=== PATIENT | female | born 1950 | race Caucasian/White ===

== ENCOUNTER 2017-10-13 11:22 | Day surgery (SDC) | payer BC, OTHER ==
[2017-09-21 09:45] VITALS: Ht 160 cm; Wt 110.0 kg
--- NOTE | 2017-09-21 10:13 | PAT Medication Instructions ---
Service Date Sep 21, 2017. Current Home Medication List Aspirin (Aspirin Ec), 81 MG PO QAM Atorvastatin (Lipitor), 20 MG PO HS Cholecalciferol (Vitamin D3), 1 TAB PO QAM Diclofenac (Voltaren), 75 MG PO BID Fish Oil ([place]-3), 1 CAP PO BID Folic Acid (Folvite), 5 MG PO QAM Hydrochlorothiazide (Hctz), 25 MG PO QAM Hydroxychloroquine Sulfate (Plaquenil), 200 MG PO BID Irbesartan-Hydrochlorothiazide (Avalide), 1 TAB PO QAM Labetalol Hcl (Normodyne), 400 MG PO BID Levothyroxine Sodium (Synthroid), 175 MCG PO QAM Methotrexate (Methotrexate), 6 TAB PO MONDAY Montelukast Sodium (Montelukast Sodium), 1 TAB PO HS Multivitamin (Multivitamin), 1 TAB PO QAM Medication Instructions For Your Scheduled Surgery -Contact your surgeon for instructions for: Aspirin (Aspirin Ec), 81 MG PO QAM Diclofenac (Voltaren), 75 MG PO BID -Contact your prescriber for instructions for: Methotrexate (Methotrexate), 6 TAB PO MONDAY - Hold the following medications 2 weeks prior to surgery: Fish Oil ([place]-3), 1 CAP PO BID - Hold the following medications the morning of surgery: Multivitamin (Multivitamin), 1 TAB PO QAM Cholecalciferol (Vitamin D3), 1 TAB PO QAM Hydrochlorothiazide (Hctz), 25 MG PO QAM Irbesartan-Hydrochlorothiazide (Avalide), 1 TAB PO QAM Folic Acid (Folvite), 5 MG PO QAM - Take the following medications the morning of surgery with a sip of water: Labetalol Hcl (Normodyne), 400 MG PO BID Hydroxychloroquine Sulfate (Plaquenil), 200 MG PO BID Levothyroxine Sodium (Synthroid), 175 MCG PO QAM - Take the following medications as scheduled the night before surgery: Atorvastatin (Lipitor), 20 MG PO HS Labetalol Hcl (Normodyne), 400 MG PO BID Hydroxychloroquine Sulfate (Plaquenil), 200 MG PO BID Montelukast Sodium (Montelukast Sodium), 1 TAB PO HS If you have any questions please call us at [phone] or [phone] or [phone]
--- NOTE | 2017-09-21 11:07 | DIAGNOSTIC IMAGING REPORT ---
LATERAL VIEW THE CERVICAL SPINE IN FLEXION AND EXTENSION (3 views) CLINICAL HISTORY: Preoperative examination COMPARISON STUDY: No previous studies for comparison. FINDINGS: The first 5 cervical vertebral bodies are visualized. There is no instability on flexion or extension. There are calcifications present within the ligamentum nuchae. IMPRESSION: No evidence of instability on flexion or extension. Electronically signed by: Alexandro Feliciano M.D. 09/21/2017 11:05 AM Dictated Date/Time: 09/21/2017 11:04 AM
[2017-09-21 11:37] LABS: BASO % 0.2 %; BASO ABS # 0.01 K/uL (0-0.2); EOS % 3.7 %; EOS ABS # 0.23 K/uL (0-0.5); HEMATOCRIT 31.5 % (37-47); HEMOGLOBIN 11.2 g/dL (12.0-16.0); IG# 0.01 K/uL (0.00-0.02); LYMPH % 25.2 %; LYMPH ABS # 1.57 K/uL (1.2-3.4); MEAN CELL VOLUME 85.4 fL (80-100); MEAN CORPUSCULAR HEMOGLOBIN 30.4 pg (25-34); MEAN CORPUSCULAR HGB CONC 35.6 g/dl (32-36); MEAN PLATELET VOLUME 9.9 fL (7.4-10.4); MONO % 8.4 %; MONO ABS # 0.52 K/uL (0.11-0.59); NEUT % 62.3 %; NEUT ABS # 3.88 K/uL (1.4-6.5); PLATELET COUNT 209 K/uL (130-400); RED CELL DISTRIBUTION WIDTH CV 13.7 % (11.5-14.5); RED CELL DISTRIBUTION WIDTH SD 42.5 fL (36.4-46.3); WHITE BLOOD COUNT 6.22 K/uL (4.8-10.8)
[2017-09-21 13:36] LABS: CALCIUM 9.6 mg/dl (8.5-10.1); CREATININE 1.08 mg/dl (0.60-1.20)
--- NOTE | 2017-10-12 16:23 | History and Physical ---
History & Physical Date Oct 12, 2017. Chief Complaint left foot pain History of Present Illness The patient is a 67 year old female with complaints of left foot pain and worsening deformity over many years. She had been treated conservatively for many years. However, the pain has worsened and is unable to be controlled with conservative treatments. She is now being set up for surgical tx. Past Medical/Surgical History PMH: HTN, high cholesterol, asthma/COPD, sleep apnea, thyroid disease, obesity, CKD stage III Social Hx: Never smoked, No alcohol. Allergies Coded Allergies: Diphtheria Toxoid-containing Vaccin (Verified Allergy, Intermediate, CELLULITIS/FLU SX, 09/21/17) Tetanus Toxoids (Verified Allergy, Intermediate, CELLULITIS/FLU SX., ) PT STATES CAN TAKE NEWER COMPOUNDS OF TDaP WITH NO PROBLEMS Methocarbamol (Verified Allergy, Mild, RASH, 09/21/17) Penicillins (Verified Allergy, Mild, RASH, 09/21/17) Phenobarbital (Verified Allergy, Mild, RASH, 09/21/17) Sulfa Drugs (Verified Allergy, Mild, RASH, 09/21/17) Sulfamethoxazole w/Trimethoprim (Verified Allergy, Mild, RASH, 09/21/17) Uncoded Allergies: SOME SURGICAL DRESSINGS (Allergy, Mild, TAPE ZARAGOZA, 03/13/13) Home Medications Scheduled Aspirin (Aspirin Ec), 81 MG PO QAM Atorvastatin (Lipitor), 20 MG PO HS Cholecalciferol (Vitamin D3), 1 TAB PO QAM Diclofenac (Voltaren), 75 MG PO BID Fish Oil ([place]-3), 1 CAP PO BID Folic Acid (Folvite), 5 MG PO QAM Hydrochlorothiazide (Hctz), 25 MG PO QAM Hydroxychloroquine Sulfate (Plaquenil), 200 MG PO BID Irbesartan-Hydrochlorothiazide (Avalide), 1 TAB PO QAM Labetalol Hcl (Normodyne), 400 MG PO BID Levothyroxine Sodium (Synthroid), 175 MCG PO QAM Methotrexate (Methotrexate), 6 TAB PO MONDAY Montelukast Sodium (Montelukast Sodium), 1 TAB PO HS Multivitamin (Multivitamin), 1 TAB PO QAM Physical Examination Skin: warm/dry, no rash Eyes: normal inspection ENT: normal ENT inspection Head: normocephalic, atraumatic Neck: supple, no adenopathy, trachea midline Respiratory/Chest: lungs clear, normal breath sounds, no respiratory distress Cardiovascular: regular rate, rhythm Abdomen / GI: normal bowel sounds, non tender Extremities: + pertinent finding (Left foot: hallux valgus deformity with hypermobile 1st ray. Hammertoe of the 2nd toe. Tender at the 1st MTP joint, 2nd metatarsal head, 2nd PIP joint. Decreased ROM and strength left forefoot.) Neurologic/Psych: no motor/sensory deficits, alert, oriented x 3 Diagnosis Left foot hallux valgus deformity left foot 2nd metatarsalgia left foot 2nd hammertoe left foot flexor and extensor contracture 2nd toe. Plan of Treatment Recommend a left foot Lapidus hallux valgus correction with distal soft tissue procedure, 2nd Wayne osteotomy, 2nd PIP joint DuVries arthroplasty, 2nd Extensor lengthening, 2nd flexor tenotomy. All potential risks, benefits, complications, alternatives, and rehab have been discussed with the patient and she wishes to proceed. She will be scheduled for 2.218 with ASA 81 mg BID x 30 days for DVT prophylaxis.
[~2017-10-13] VITALS: Ht 160 cm; Wt 110.0 kg
[~2017-10-13 11:22] MED LIST: ASPI81TA28 PO; ATOR-22 PO; CHOL1000 PO; CLINDAMYCIN PHOS 150 MG/ML 2 ML VIAL IV SCH; DICL-201 PO; FOLI1TAB8 PO; HYDR200T5 PO; HYDR25TA4 PO; IRBE-43 PO; LACTATED RINGER'S 1000ML 1,000 ML IV SCH; LBT/200 PO; LEVO175T PO; METH2.5T PO; MONT1TAB5 PO; MULT-506 PO; OMEG10007 PO; ROPIVACAINE 0.5% 5 MG/ML 30 ML VIAL ONE
[2017-10-13] MEDS ORDERED: CLINDAMYCIN 600 MG/54 ML D5W IV ONE (12:36)
[2017-10-13 12:38] VITALS: BP 167/64; PULSE 59; TEMP 36.6; O2SAT 98
[2017-10-13] MEDS ORDERED: BUPIVACAINE 0.5 % 5 MG/1 ML MPF 30ML VIAL ONE (13:32)
[2017-10-13] MEDS ORDERED: BACITRACIN 50000 UNIT VIAL ONE (13:32)
[2017-10-13] MEDS ORDERED: LABETALOL HCL IV 5 MG/ML 20ML IV PRN (13:45)
[2017-10-13] MEDS ORDERED: NALOXONE HCL 0.4 MG/1 ML VIAL/CARP IV PRN (13:45)
[2017-10-13] MEDS ORDERED: FENTANYL CITRATE INJ 50 MCG/1 ML 2 ML VIAL IV PRN (13:45)
[2017-10-13] MEDS ORDERED: MEPERIDINE HCL 25 MG/ML CARP IV PRN (13:45)
[2017-10-13] MEDS ORDERED: HYDROmorphone INJ 2 MG/ML SYR/VIAL IV PRN (13:45)
[2017-10-13] MEDS ORDERED: ONDANSETRON INJ 2 MG/ML 2 ML VIAL IV PRN (13:45)
[2017-10-13] MEDS ORDERED: PHENYLEPHRINE 100MCG/ML 5ML SYR IV PRN (13:45)
[2017-10-13] MEDS ORDERED: FLUMAZENIL 0.1 MG/1 ML 10 ML VIAL IV PRN (13:45)
[2017-10-13] MEDS ORDERED: ATROPINE SULFATE 0.1 MG/ML 5ML SYR IV PRN (13:45)
[2017-10-13] MEDS ORDERED: EpHEDrine SULFATE INJ 50 MG/ML AMP IV PRN (13:45)
[2017-10-13] MEDS ORDERED: PROPOFOL IV EMULSION 10 MG/ML 20 ML VIAL IV ONE ×2 (14:10→16:01)
[2017-10-13] MEDS ORDERED: LIDOCAINE HCL 2% 2 ML VIAL (20MG/ML) ONE ×2 (14:10→16:01)
[2017-10-13] MEDS ORDERED: MIDAZOLAM HCL 1 MG/ML 2ML VIAL ONE (14:11)
[2017-10-13] MEDS ORDERED: FENTANYL CITRATE INJ 50 MCG/1 ML 2 ML VIAL ONE ×3 (14:11→17:23)
[2017-10-13] MEDS ORDERED: DEXAMETHASONE SOD INJ 4 MG/ML VIAL ONE ×2 (15:06→16:01)
[2017-10-13] MEDS ORDERED: EpHEDrine SULFATE INJ 50 MG/ML AMP ONE (15:07)
--- NOTE | 2017-10-13 15:23 | History & Physical Bridge Note ---
H&P Re-Evaluation Bridge Note: I have examined the patient, reviewed the History & Physical and in the interval since the performance of the History & Physical I have noted the following changes of clinical significance: No changes noted
[2017-10-13] MEDS ORDERED: ASPI81TA28 PO (15:51)
[2017-10-13] MEDS ORDERED: OXYC-57 PO (15:51)
--- NOTE | 2017-10-13 15:53 | Discharge Instructions ---
Discharge Instructions Date of Service Oct 13, 2017. Admission Reason for Admission: Left Foot Hallux Valgus, Other Hammer Toes Discharge Discharge Diagnosis / Problem: left foot hallux valgus Discharge Goals Goal(s): Decrease discomfort, Improve function Activity Recommendations Activity Limitations: per Instructions/Follow-up section Weightbearing Status: Left non-weightbearing . Instructions / Follow-Up Instructions / Follow-Up ACTIVITY RECOMMENDATIONS: Limitations: No weight bearing to affected limb at all times. SPECIAL CARE INSTRUCTIONS: * Some drainage onto the dressing is normal and is no cause for alarm. * Some swelling is natural especially after walking. * When resting, keep your foot elevated above the level of your heart. * Call [facility] if you notice: -Increased drainage -Fever over 101 degrees F -Severe constant pain BANDAGE: * Leave bandage/cast in place unless otherwise directed. * Keep bandage/cast dry at all times. PIN CARE: * Leave pins alone. * If pins come loose or fall out, notify physician. FOLLOW UP VISIT WITH DR. COOPER If appointment is not already scheduled: Please call [facility] after you get home today to schedule a follow-up appointment for [address] Cooper at . Current Hospital Diet Patient's current hospital diet: Discharge Diet Recommended Diet: Regular Diet Pending Studies Studies pending at discharge: no Medical Emergencies . Who to Call and When: Medical Emergencies: If at any time you feel your situation is an emergency, please call 911 immediately. . Non-Emergent Contact Non-Emergency issues call your: Surgeon Call Non-Emergent contact if: temperature is above 101, your pain is not controlled, your pain is worsening, wound has increased drainage, wound has increased redness . "Provider Documentation" section prepared by Matthew Winters. . VTE Core Measure Inpt VTE Proph given/why not?: SCD's
[2017-10-13] MEDS ORDERED: OXYCODONE/ACETAMINOPHEN 5-325 TAB PO PRN (16:00)
[2017-10-13] MEDS ORDERED: SUCCINYLCHOLINE CHLORIDE 20 MG/ML 10 ML VIAL IV ONE (16:01)
[2017-10-13] MEDS ORDERED: ROCURONIUM BROMIDE 10 MG/ML 5 ML VIAL IV ONE (16:01)
[2017-10-13] MEDS ORDERED: ONDANSETRON INJ 2 MG/ML 2 ML VIAL ONE (16:01)
--- NOTE | 2017-10-13 17:47 | [facility] Post Operative Brief Note ---
Immediate Operative Summary Operative Date Oct 13, 2017. Pre-Operative Diagnosis Left foot severe hallux valgus deformity left foot 2nd metatarsalgia left foot 2nd hammertoe left foot flexor contracture 2nd toe. left foot extensor contracture 2nd toe Post-Operative Diagnosis Left foot severe hallux valgus deformity left foot 2nd metatarsalgia left foot 2nd hammertoe left foot flexor contracture 2nd toe. left foot extensor contracture 2nd toe left foot contracture 2nd metatarsophalangeal joint Procedure(s) Performed 1. Left foot Lapidus Hallux Valgus correction with distal soft tissue procedure 2. Left foot 2nd Wayne osteotomy 3. Left 2nd DuVries arthroplasty 4. Left 2nd extensor lengthening 5. Left 2nd flexor tenotomy 6. Capsulotomy 2nd Metatarsophalangeal joint Surgeon Dr Jim Occupational Physician Surgeon(s) Ethel Winters PA-C Estimated Blood Loss 5cc Findings Consistent with Post-Op Diagnosis Specimens None Drains None Anesthesia Type General Regional Complication(s) none Disposition Accompanied Pt To Recover: no Disposition: Recovery Room / PACU
--- NOTE | 2017-10-13 17:50 | DIAGNOSTIC IMAGING REPORT ---
L FOOT 2 VIEWS CLINICAL HISTORY: 67 years-old Female presenting with LEFT FOOT. TECHNIQUE: 2 fluoroscopic spot image(s) obtained as part of an intraoperative procedure. COMPARISON: None. FINDINGS/IMPRESSION: 2 screw fixation through the base of the first metatarsal, one of the screws resulting in arthrodesis of the navicular-medial cuneiform and medial cuneiform-first metatarsal articulations. Pin fixation through the second toe bridging into the second metatarsal. Small screw fixation of the second metatarsal head. The second metatarsal head and neck are rather indistinct. No gross malalignment at the second metatarsophalangeal articulation. Please see surgical report for further details. Fluoroscopy dosage (mGy): 0.11. Fluoroscopy time: 6 seconds. Number of fluoroscopic spot images: 2. Electronically signed by: Mike Hunter M.D. 10/13/2017 5:49 PM Dictated Date/Time: 10/13/2017 5:46 PM
--- NOTE | 2017-10-13 18:20 | Anesthesiology Progress Note ---
Anesthesia Post Op Note Date & Time Oct 13, 2017 at 18:20 Vital Signs Pain Intensity: 0 Vital Signs Past 12 Hours Date Time Temp Pulse Resp B/P (MAP) Pulse Ox O2 Delivery O2 Flow Rate FiO2 10/13/17 12:38 36.6 59 18 167/64 (98) 98 Room Air Notes Mental Status: alert / awake / arousable, participated in evaluation Pt Amnestic to Procedure: Yes Nausea / Vomiting: adequately controlled Pain: adequately controlled Airway Patency, RR, SpO2: stable & adequate BP & HR: stable & adequate Hydration State: stable & adequate Anesthetic Complications: no major complications apparent Block working well in pacu
[2017-10-13 19:00] VITALS: BP 168/81; PULSE 75; TEMP 36.9; O2SAT 94
--- NOTE | 2017-10-13 19:05 | DIAGNOSTIC IMAGING REPORT ---
L FOOT MIN 3 VIEWS ROUTINE CLINICAL HISTORY: 67 years-old Female presenting with post op. TECHNIQUE: Frontal, oblique, and lateral views of the left foot were obtained. COMPARISON: Fluoroscopic views performed earlier the same day. FINDINGS: Plaster splint in place partially obscuring underlying osseous detail. A pin fixation is noted across the second toe traversing across the second metatarsal head and distal metadiaphysis. Small screw fixation of the second metatarsal head and neck. 2. Screw fixation through the first tarsometatarsal articulation. This may extend into the inferior aspect of the joint space at the navicular-medial cuneiform articulation. Degenerative changes noted in the midfoot. Minimal angulation noted at the second metatarsal neck likely indicating fracture. A fracture plane may be evident at the second metatarsal neck. No other evidence of malalignment. Prominent enthesophyte at the inferior calcaneus. Soft tissue emphysema, expected postsurgical findings. IMPRESSION: 1. Internal and external fixation as detailed above. One of the screws at the first tarsometatarsal articulation may impinge on the inferior aspect of the navicular-medial cuneiform articulation. Correlate clinically. 2. Possible fracture plain across the second metatarsal neck. No significant malalignment. Electronically signed by: Mike Hunter M.D. 10/13/2017 7:04 PM Dictated Date/Time: 10/13/2017 7:01 PM
[2017-10-13 19:30] VITALS: BP 167/80; PULSE 79; TEMP 36.9; O2SAT 93
--- NOTE | 2017-10-13 21:28 | OPERATIVE REPORT ---
DATE OF OPERATION: 10/13/2017 PREOPERATIVE DIAGNOSES: 1. Left foot severe hallux valgus deformity. 2. Left foot second metatarsalgia. 3. Left foot second hammertoe. 4. Left foot flexion contracture of the second toe. 5. Left foot extensor contractures, second toe. 6. Left foot contracture of the second metatarsophalangeal joint. POSTOPERATIVE DIAGNOSES: Same. PROCEDURE: 1. Left foot Lapidus hallux valgus correction with distal soft tissue procedure. 2. Left foot second Wayne osteotomy. 3. Left foot second DuVries arthroplasty. 4. Left foot second extensor tendon lengthening. 5. Left foot second flexor tenotomy. 6. Capsulotomy of the second metatarsophalangeal joint. SURGEON: Bladimir Jim DO. DOOR TO DOOR SALES REPRESENTATIVE: Matthew Winters PA-C, who was present for patient positioning, sterile prep and drape, management of retractors and instruments. He was present through the critical portions of the case including wound closure, application of sterile dressing and transport of the patient to recovery. ANESTHESIA: General endotracheal tube with popliteal block. SPECIMENS: None. DRAINS: None. COMPLICATIONS: None. BLOOD LOSS: 5 mL. PERTINENT HISTORY: This is a 67-year-old woman who had a longstanding history of chronic progressive and ongoing pain and deformity of her left foot. She attempted and failed conservative management including shoewear modification, activity modification, anti-inflammatories, use of a shoe orthotic, physician directed home exercises, physical therapy and injections. She failed all measures and had radiographs demonstrated severe hallux valgus deformity with second hammertoe deformity. Clinically, she demonstrated hypermobile first ray with painful first ray and a severe rigid second hammertoe with claw features and contracture of the second metatarsophalangeal joint. The patient was then scheduled for surgery as indicated. All potential risks, benefits, complications, alternatives, rehab, potential for incomplete relief of symptoms, need for further surgery, DVT, PE, , persistent pain, swelling, scarring, weakness, neurovascular injury, wound complications, hardware failure, nonunion, malunion and bone fracture were discussed with the patient. The patient decided to proceed with the procedure as indicated. DESCRIPTION OF THE PROCEDURE: After popliteal block was administered in the preop holding area, the patient was taken to the operative suite, placed supine on operative table. I reviewed consent and identification of proper operative site, the patient was anesthetized, endotracheal tube was placed. Tourniquet was placed high on the left thigh over cast padding. Left lower extremity was then sterilely prepped and draped in usual fashion, elevated and exsanguinated with an Esmarch bandage. Esmarch tourniquet was applied over sterile surgical towel at the level of the ankle. The pneumatic tourniquet was not used during the case. Next, a transverse incision was made over the second toe proximal interphalangeal joint with 15 blade scalpel. The incision was deepened through subcutaneous tissue, extensor mechanism and capsule. Small ellipse of dorsal skin was then excised with a 15 blade scalpel. The collateral ligaments were sacrificed with 15 blade scalpel and then a bone biting rongeur was used to resect the distal aspect of the proximal phalanx of the second toe. Next, a 15 blade was then used to make an incision in the plantar plate and then using appropriate retractors and traction, the flexor tendon was visualized and then transected with a 15 blade scalpel. Next, the 15 blade was used to make an incision between the second and third metatarsal heads dorsally. The incision was deepened through subcutaneous tissue. Meticulous hemostasis was achieved with electrocautery. Full thickness skin flaps were developed. The second extensor tendon was identified and then split in its midline and then a Z lengthening was then performed with a 15 blade scalpel. Next, this was retracted and protected and the contracted dorsal portion of the second metatarsophalangeal joint was then transversely incised. This was performed with a 15 blade scalpel to perform the capsulotomy of the second metatarsophalangeal joint. Once this was completed, a T incision was made along the dorsal cortex of the second metatarsal and this was elevated both medially and laterally. The collateral ligaments were sacrificed and then the collaterals at the base of the proximal phalanx were then partially released with a 15 blade scalpel. Next, the second metatarsophalangeal joint was then hyperplantarflexed and then an oblique osteotomy was created with a sagittal saw at approximately 15 degree angle plantarward. Next, small wafer of bone was then resected with a parallel cut with a sagittal saw and then the dorsal portion of the osteotomy was then shortened slightly with a rongeur. Next, the osteotomy was then reapproximated and then fixed in place with a 1.5 mm modular handset screw. Next, the second toe was held in corrected alignment and then the extensor tendon was then reapproximated with moderate tension with interrupted 3-0 Mersilene suture. Next, the attention was then directed toward the medial eminence of the first metatarsophalangeal joint and with a 15 blade scalpel, incision was made medially. This incision was then deepened through subcutaneous tissue. Meticulous hemostasis was achieved with electrocautery and the dorsal and plantar sensory cutaneous nerves were identified, freed, retracted, and protected. This was then followed by placement of 2 stent rakes and then the 11 blade scalpel was then used to excise an ellipse of the medial capsular tissue. An L capsulotomy was then created and the capsular tissues then elevated from the medial eminence. The medial eminence was then resected in line with a sagittal sulcus with the sagittal saw. Rongeur was then used to smooth and contour the remainder of the medial first metatarsal. This was irrigated with sterile normal saline. This was then followed by dorsal incision between the first and second metatarsal heads. The incision deepened to subcutaneous tissue. Meticulous hemostasis was achieved with electrocautery and blunt dissection was performed down to the level of Lana's fascia. It was then incised with 15 blade scalpel. The abductor tendon was then sharply released in the lateral aspect of the sesamoid and the interval between the sesamoid and the first metatarsal was then entered with a 15 blade scalpel to release it. Next, the capsule was then pie crusted with a 15 blade scalpel and then a varus force supply to release the valgus contracture of the joint. Next, the abductor tendon was then attached to the dorsal portion of the capsule of the first metatarsal with interrupted 2-0 Vicryl sutures x3. Next, a 15 blade scalpel was used to make an incision over the dorsal aspect of the first tarsometatarsal joint. This incision was then deepened through subcutaneous tissue. Meticulous hemostasis was achieved with electrocautery. Full thickness skin flaps were developed. The extensor hallucis longus was then freed, retracted laterally with a Weitlaner. Next, dorsal periosteum was incised along the skin incision. The capsule was then elevated both medially and laterally and then a sagittal saw was then used to resect the distal aspect of the first cuneiform and the proximal aspect of the first metatarsal with a corrected alignment. Slight plantarflexion was performed in the first cuneiform cut. Next, the joint was irrigated with sterile normal saline. Multiple small drill holes were made in the base of the first tarsometatarsal joint and then the joint was then reapproximated in corrected alignment, pinned in place provisionally with a 0.062 inch K-wire under live fluoroscopic assistance. Once this was completed, 2 crossing 4.0 cancellous fully threaded screws were placed and countersunk to stabilize the first tarsometatarsal joint. This was then followed by irrigation of all skin incisions with copious amounts of sterile normal saline. The sutures in the first interspace were then tied and cut followed by correction of the great toe alignment with regard to varus, valgus and rotation and then the medial capsule was then closed using interrupted [id number] 2-0 Vicryl sutures. Next, 0.045 inch K-wire was driven out the tip of the second toe and under live fluoroscopic assistance, driven into the proximal phalanx and into the second metatarsal. This pin was then bent, cut and capped with a Jergens ball. This was then followed by final radiographs and closure of all skin incisions with 4-0 nylon sutures followed by application of a sterile compressive forefoot dressing. The tourniquet was released. A posterior well-padded plaster splint was applied overwrapped with an Yonny wrap. The foot was held in neutral dorsiflexion. The patient was then awakened and taken to recovery in stable condition. I attest to the content of the Intraoperative Record and any orders documented therein. Any exception s are noted below.
== END 2017-10-13 19:49 | disposition home or self-care (01) ==
LOC: C.ACU 11:22
PROVIDERS: ATTEND Orthopaedic Surgery Sports Medicine
DX: M20.12 Hallux valgus (acquired), left foot (principal); M77.42 Metatarsalgia, left foot; M20.42 Other hammer toe(s) (acquired), left foot; M24.575 Contracture, left foot; J45.909 Unspecified asthma, uncomplicated; I12.9 Hypertensive chronic kidney disease with stage 1 through stage 4 chronic kidney disease, or unspecified chronic kidney disease; N18.3 Chronic kidney disease, stage 3 (moderate); G47.33 Obstructive sleep apnea (adult) (pediatric); E66.01 Morbid (severe) obesity due to excess calories; Z88.0 Allergy status to penicillin; Z88.2 Allergy status to sulfonamides; E78.00 Pure hypercholesterolemia, unspecified